=== PATIENT | male | born 1995 | race Caucasian/White ===

== ENCOUNTER 2016-12-02 20:38 | Emergency (ER) ==
[2016-12-02 20:51] VITALS: BP 144/94
--- NOTE | 2016-12-02 22:31 | PROVIDER DOCUMENTATION ---
HPI-Musculoskeletal Pain/Inj - GENERAL Chief Complaint: Extremity Injury Stated Complaint: FALL (LAST NIGHT) Time Seen by Provider: 12/02/16 21:43 Source: patient - HX OF PRESENT ILLNESS-MUSKULOSKELTAL Nature of Presenting Problem: 21 y/o WM c/o L ankle pain x 1 day. Pt states he was walking down stairs last night when he missed the last 4 steps. States inversion injury to ankle with LROM and pain with ambulation. Denies any numbness/tingling. States pain at lateral aspect of ankle. Denies any knee pain. Review of Systems - Adult - REVIEW OF SYSTEMS - ADULT Constitutional: reports: no symptoms reported. denies: chills, fever Eyes: reports: no symptoms reported. denies: blurred vision, double vision Ears, Nose, Mouth & Throat: reports: no symptoms reported. denies: ear pain, nose pain Cardiovascular: reports: no symptoms reported. denies: chest pain, palpitations Respiratory: reports: no symptoms reported. denies: dyspnea on exertion, shortness of breath Gastrointestinal: reports: no symptoms reported. denies: abdominal pain, nausea , vomiting Genitourinary: reports: no symptoms reported. denies: dysuria, frequency Musculoskeletal: reports: see HPI, joint pain. denies: back pain, neck pain Integumentary: reports: no symptoms reported. denies: nail changes, rash Neurological: reports: no symptoms reported. denies: numbness, paresthesia Psychiatric: reports: no symptoms reported Endocrine: reports: no symptoms reported. denies: cold intolerance, heat intolerance Hematologic/Lymphatic: reports: no symptoms reported. denies: easy bruising, prolonged bleeding Allergic/Immunologic: reports: no symptoms reported All Other Systems: Reviewed and Negative Past History - Adult - PAST MEDICAL HISTORY-ADULT Review of Records: reports: Nursing Assessment Review, Medications Reviewed - SOCIAL HISTORY Smoking: cigarettes, less than 1 pack/day Provider spent 3-5 mins advising pt. on dangers of tobacco.: Discussed manners to quit use, and f/u contacts for add'l counseling. Physical Exam-Injury Related - Physical Exam-Injury Related Initial Vital Signs Reviewed: Yes General Appearance: alert, mild distress Eyes: pink conjunctivae Head, Ears, Nose, Mouth & Throat: normocephalic/atraumatic Neck: normal inspection Respiratory: no respiratory distress Cardiovascular: normal peripheral pulses, regular rate, rhythm Peripheral Pulses: dorsalis-pedis (R): 1+, dorsalis-pedis (L): 1+ Back Exam: normal inspection Extremity: normal inspection, normal capillary refill, swelling (Lateral L ankle ), tenderness (L lateral ankle). negative: normal range of motion (LROM at L ankle), abnormal NV exam, deformity, pulse deficit Integumentary: normal color, warm/dry, blanching Neurologic: negative: aphasia Psych/Mental Status: normal mood/affect, normal thought content, normal thought process, oriented x 3 Progress - PLAN OF CARE/RESULTS Progress/Plan/Lab Results: Orders Category Date Time Status Jason Wrap Application DIRECTED Care 12/02/16 22:26 Active Crutches DIRECTED Care 12/02/16 22:26 Active ANKLE COMPLETE LEFT [RAD] Stat Exams 12/02/16 20:54 Completed FOOT COMPLETE LEFT [RAD] Stat Exams 12/02/16 20:53 Completed Vital Signs Temp Pulse Resp BP Pulse Ox 12/02/16 20:48 98.2 F 79 18 144/94 99 No Known Allergies Allergy (Verified 12/02/16 20:51) Escitalopram Oxalate [Lexapro] 20 mg PO DAILY 12/02/16 Zolpidem Tartrate [Ambien] 10 mg PO HS 12/02/16 Discussed results and f/u with pt. - XRAY 1 XRAY: Left XRAY Study: Ankle, Foot XRAY Interpretation: No fx Procedures - SPLINTING Left Lower Extremity Pre-Procedure Neurovascular Exam: Intact Pre-Fabricated Splint: Jason Wrap Applied By: ED Nurse Post Procedure Neurovascular Exam: Intact Procedure Comment: Pt tolerated well Departure - Departure Time of Disposition Order: 22:28 DIAGNOSIS: Ankle sprain Qualifiers: Encounter type: initial encounter Involved ligament of ankle: unspecified ligament Laterality: left Qualified Code(s): S93.402A - Sprain of unspecified ligament of left ankle, initial encounter Disposition: HOME 01 Certified Medical Emergency: Emergent Condition: Stable Additional Instructions: Take tylenol or motrin for pain. RICE often, not longer than 10 minutes at a time. Follow up with specialist for further management. ED Follow Up Instructions: You have been treated by a care provider in the Emergency Department. These instructions are being provided to you so you can have an understanding of how to care for yourself upon discharge. Upon discharge from the Emergency Department, you are responsible for making arrangements for follow-up care by a physician of your choice. Take all prescribed medications as directed. Return to the Emergency Department immediately for any new or worsening symptoms. You may call the Physician Referral phone number at [phone] to obtain a list of Physicians who are taking new patients. Referrals: None,PCP [Primary Care Provider] - Gus Tesfaye MD [STAFF PHYSICIAN] - Forms: Return to School/Parent Work Instructions: Ankle Sprain, [id number] Attestation - Physician/ MYA Attestation Patient care was provided by Advanced Practice Provider:: Yes Advanced Practice Provider:: Loli Ortega Advanced Practice Provider documentation review:: The Mid-level provider documentation, treatment plan and medical decision making was reviewed by the physician who agrees with all treatment and medical decision making by the MLP.
--- NOTE | 2016-12-03 08:04 | Diag Imaging Result Document ---
PROCEDURE NAME: ANKLE COMPLETE LEFT - 12/02/2016 LEFT ANKLE, THREE VIEWS: FINDINGS: There is mild lateral soft tissue swelling. No fracture. No dislocation. IMPRESSION: No acute bony injury.
--- NOTE | 2016-12-03 09:28 | Diag Imaging Result Document ---
PROCEDURE NAME: FOOT COMPLETE LEFT - 12/02/2016 LEFT FOOT, 3 VIEWS: FINDINGS: There is no evidence of acute fracture or dislocation. No definite bony abnormalities are present. IMPRESSION: No evidence of acute disease.
== END 2016-12-02 22:57 | disposition home or self-care (01) ==
LOC: P.ED 20:38
DX: S93.402A Sprain of unspecified ligament of left ankle, initial encounter (principal); M25.572 Pain in left ankle and joints of left foot; M25.472 Effusion, left ankle; F17.210 Nicotine dependence, cigarettes, uncomplicated; Z71.6 Tobacco abuse counseling; X58.XXXA Exposure to other specified factors, initial encounter
CPT/HCPCS: 99283